=== PATIENT | female | born 1950 | race African-American/Black ===

== ENCOUNTER 2022-03-15 08:56 | Outpatient (CLI) | payer MEDICARE | END 2022-03-15 08:57 | disposition home or self-care (01) | LOC: CSHMAMMO 08:56 | PROVIDERS: ATTEND Family Medicine | DX: Z12.31 Encounter for screening mammogram for malignant neoplasm of breast (principal) | CPT/HCPCS: 77063; 77067 ==

== ENCOUNTER 2023-05-07 10:12 | Outpatient (CLI) | payer MEDICARE | END 2023-05-07 10:13 | disposition home or self-care (01) | LOC: CSHMAMMO 10:12 | PROVIDERS: ATTEND Family Medicine | DX: Z12.31 Encounter for screening mammogram for malignant neoplasm of breast (principal); M85.89 Other specified disorders of bone density and structure, multiple sites; Z78.0 Asymptomatic menopausal state | CPT/HCPCS: 77063; 77067; 77080 ==

== ENCOUNTER 2024-05-11 09:59 | Outpatient (CLI) | payer MEDICARE | END 2024-05-11 10:00 | disposition home or self-care (01) | LOC: CSHMAMMO 09:59 | PROVIDERS: ATTEND Family Medicine | DX: Z12.31 Encounter for screening mammogram for malignant neoplasm of breast (principal); N64.89 Other specified disorders of breast | CPT/HCPCS: 77067 ==

== ENCOUNTER 2025-05-21 09:19 | Outpatient (CLI) | payer MEDICARE | END 2025-05-21 09:20 | disposition home or self-care (01) | LOC: CSHMAMMO 09:19 | PROVIDERS: ATTEND Family Medicine | DX: R92.8 Other abnormal and inconclusive findings on diagnostic imaging of breast (principal) | CPT/HCPCS: 77066; G0279 ==